=== PATIENT | male | born 1975 | race Hispanic/Latino ===

== ENCOUNTER 2023-12-03 15:59 | Emergency (ER) | payer SELFPAY ==
[2023-12-03 16:13] VITALS: BP 152/97
--- NOTE | 2023-12-03 19:01 | ED.SKININJ ---
HPI-Injury
General
Chief Complaint: Skin Problem
Source: patient
Exam Limitations: none
Time Seen by Provider: 12/03/23 17:36
Nursing documentation reviewed up to this point in time: agreed with
Travel History
Have you had any contact with someone who has COVID-19?: No
Do you have any symptoms of coronavirus? Fever > 100 degrees, chills, cough, shortness of breath, sore throat, loss of taste or smell, muscle aches, or headache?: No
History of Present Illness-Injury
Is this injury a work related problem?: No
Is pt an associate of [facility]?: No
Initial Injury comments:
Patient to ED for eval of rash to right abdomen and flank. States rash developed approx 3 weeks ago. States rash is diminishing but still notes pain. Denies fever/chills. No prior history of same. Miriam christiansen to ED for eval. States he
noticed a rash on his right shoulder but that has resolved.
Past History
Past History
ED Past Medical History: None
ED Past Surgical History: None
Social History
Living: with family
Review of Systems
Review of Systems
Allergies reviewed?: Yes
All Other Systems: ROS reviewed and negative except as documented in HPI and ROS
Constitutional: Reports no symptoms
EENT: Reports no symptoms
Respiratory: Reports no symptoms
Cardiac: Reports no symptoms
ABD/GI: Reports no symptoms
Musculoskeletal: Reports no symptoms
Skin: Reports other (Painful vesicular rash to rigt abdomen and flank.)
Neurological: Reports no symptoms
Psychiatric: Reports no symptoms
Phy Exam
General Physical Exam
General Presentation: well appearing and no apparent distress
General age: appears stated age
General Skin: warm
General Habitus: normal
General Mental: alert
Neurological Exam
Neurological Exam: alert, oriented x3, CN II-XII intact, no motor deficits and no sensory deficits
Musculoskeletal Exam
Musculoskeletal Exam: full ROM
Skin Exam
Skin Exam: normal color, warm/dry and other (vesicular rash to right flank and abdomen consistent with shingles. No rash noted on shoulder)
Psychiatric Exam
Psychiatric Exam: normal mood/affect
Course
Vital Signs
Initial and Last Documented VS:
Initial Vital Signs
Temp Pulse Resp BP Pulse Ox
98.8 F 83 18 152/97 99
12/03/23 16:13 12/03/23 16:13 12/03/23 16:13 12/03/23 16:13 12/03/23 16:13
Last Documented Vital Signs
Temp Pulse Resp BP Pulse Ox
98.8 F 83 18 152/97 99
12/03/23 16:13 12/03/23 16:13 12/03/23 16:13 12/03/23 16:13 12/03/23 16:13
*Critical Care Note
Total Time (30-74mins, 75-104mins- exclusive of procedures): Not Applicable
ED Attending Note
-
Portions of this chart may have been created with voice recognition software.� Occasional wrong word or��sound alike� substitutions may have occurred due to the inherent limitations of voice recognition software.
Discharge Plan
Departure
Patient Disposition: Home (Routine Discharge)
Date of Disposition: 12/03/23
Time of Disposition: 18:59
Patient with high blood pressure during this ER visit?: No
Condition: Good
Covid-19: Not Applicable
Discharge Problem:
Shingles
Instructions: Shingles (DC)
Prescriptions:
No Action
zolpidem [Ambien] 10 MG tablet
10 mg PO HS
Referrals:
UNKNOWN - PT DOES,NOT KNOW [Family Provider] -
Activity Restrictions/Additional Instructions:
Follow up with your family doctor
Interventions
Interventions:
*Risk Screen - Suicide Last Done: 12/03/23 18:56
*General Assessment Last Done: 12/03/23 16:13
*Neglect/Abuse Screening Last Done: 12/03/23 18:56
ED- Fall Risk Assessment Last Done: 12/03/23 18:58
*ED COVID-19 Vaccine History Last Done: 12/03/23 16:13
*Nursing Disposition Last Done: 12/03/23 19:28
ED-Skin Assessment Last Done: 12/03/23 18:55
Discharge Date and Time
Discharge Date/Time: 12/03/23 19:30
Print Language: HONDURAN
== END 2023-12-03 19:30 | disposition home or self-care (01) ==
LOC: EMR 15:59
PROVIDERS: EMERGENCY PHYSICIAN Emergency Medicine
DX: B02.9 Zoster without complications (principal)
CPT/HCPCS: 99282